=== PATIENT | female | born 1990 | race Caucasian/White ===

== ENCOUNTER 2016-11-10 19:24 | Emergency (ER) | payer SELFPAY ==
[2016-11-10 19:33] VITALS: TEMP 98.3; BMI 44.8
[2016-11-10] MEDS ORDERED: ONDANSETRON HCL 4 MG/2 ML VIAL IV ONE (19:51)
[2016-11-10] MEDS ORDERED: NS 2,000 ML IV ONE (19:51)
[2016-11-10] MEDS ORDERED: SODIUM CHLORIDE 0.9% 10 ML FLUSH FLUSH PRN (19:51)
--- NOTE | 2016-11-10 19:59 | EDPRACDOC ---
- General Information Chief Complaint: Generalized Weakness Stated Complaint: DEHYDRATION? Time Seen by Provider: 11/10/16 19:51 Information Source: Patient Mode Of Arrival: Car Home Medications: Home Medications Promethazine [Phenergan] 25 mg PO Q4-6H PRN #15 tab 11/10/16 Allergies/Adverse Reactions: Allergies Allergy/AdvReac Type Severity Reaction Status Date / Time No Known Allergies Allergy Verified 11/10/16 19:33 - History of Present Illness Onset: last Wednesday HPI: Pt c/o n/v x 4-5 days with upper abd pain. Denies fever, cough, congestion, cp, sob, changes in bowel or bladder, rash. Pt states she feels very dehydrated and every time she drinks or eats it causes pain and vomiting. Denies vomiting in 24 hours more nausea. Pain Location: Reports: Epigastric, LUQ Pain Context: Reports: Spontaneous Pain Severity: Moderate Pain Quality: Reports: Aching, Sharp Pain Radiation: Reports: No Radiation Last Menstrual Period: october 20 : No Adult Abdominal History: Denies: Abdominal Surgery, Urolithiasis, Bowel Obstruction, Similar Pain (dx) Female Abdominal History: Denies: Abdominal Surgery, UTI, Ectopic, PID, Urolithiasis, Similar Pain (dx) Modifying Factors: improves with: Food Female Associated Signs & Symptoms: Reports: Nausea, Vomiting Oral Intake: Decreased Urinary Output: Decreased ED Past Medical History - History Reviewed Yes Nurses notes reviewed and agree except as marked - Patient Medical History Psychological History: Denies: Depression Systemic History: Denies: Cancer Surgical History: Reports: Appendectomy, Cholecystectomy, Tonsillectomy/ Adnoidectomy - Social Medical History Smoking Status: Never smoker ETOH: None Substance Abuse: None EDM Review of Systems - Review of Systems Constitutional: No Symptoms Reported. negative: Fever, Chills, Weakness, Fatigue, Loss of Appetite Ears: No Symptoms Reported. negative: Pain, Hearing Loss, Drainage, Ear Pulling Throat: No Symptoms Reported. negative: Pain, Swelling Nose: No Symptoms Reported. negative: Congestion, Bleeding, Discharge, Injection, Swelling, Deformity, Ecchymosis, Tender, Abrasion, Laceration Mouth: No Symptoms Reported. negative: Pain, Drooling Respiratory: No Symptoms Reported. negative: Cough, Brassy Cough, Barky Cough, Shortness of Breath, Wheezing, Hemoptysis Cardiovascular: No Symptoms Reported. negative: Chest Pain, Palpitations, Syncope, Edema, Orthopnea, PND, Skin Mottling, Cyanosis Gastrointestinal: Nausea, Pain, Vomiting Genitourinary: No Symptoms Reported. negative: Dysuria, Hematuria, Frequency, Discharge, Bleeding, Testicular Pain, Neurological: No Symptoms Reported. negative: Headache, Dizziness, Seizure, Numbness, Weakness, Speech Difficulty, Gait Difficulty Musculoskeletal: No Symptoms Reported. negative: Neck, Chestwall, Ribs, Back, Shoulder, Arm, Elbow, Forearm, Wrist, Hand, Pelvis, Hip, Femur, Knee, Leg, Ankle , Foot Integumentary: No Symptoms Reported. negative: Itching, Rash, Bruising, Wound Allergic/Immunologic: No Symptoms Reported. negative: Hives, Itching Hematologic: No Symptoms Reported. negative: Lymphadenopathy, Easy Bruising, Easy Bleeding Psychiatric: No Symptoms Reported. negative: Anxiety, Depression, Hallucinations, Insomnia, Suicidal - Physical Exam Constitutional: Alert Oriented to: Time, Person, Place Last recorded Vital Signs: Last Vital Signs Temp 98.3 F 11/10/16 19:27 Pulse 130 H 11/10/16 19:34 Resp 20 11/10/16 19:27 BP 116/69 11/10/16 19:34 Pulse Ox 100 11/10/16 19:27 Oxygen Pulse Oxygen Saturation 100 O2 Device Room Air Oxygen Flow Rate Fraction of Inspired Oxygen ( FIO2) - HEENT Head: Normal ( normocephalic) Eye Exam: Normal (PERRL, EOMI, Sclera white) Oropharynx: Normal (Pharynx:Moist without exudate,Gums-no swelling) Neck: Normal (FROM, trachea at midline) - Respiratory/Cardiovascular Respiratory: Normal - CTA (BBS clear to auscultation without adventitious sounds ) Cardiovascular: Normal (RRR without murmur, gallop or rub) - GI Auscultation: Increased Palpation: Normal (Soft,No rebound or guarding, non distended) Tenderness: Mild, LUQ, Epigastric - Musculoskeletal Back: Normal (Non-Tender) Extremities: Normal (Normal tone, Pulses 2+ No cyanosis or edema, FROM) - Integumentary Skin: Normal, Warm, Dry Lymphatics: Normal (no adenopathy) - Neurologic Memory Impaired: Normal Motor Function: Normal (Normal tone, Pulses 2+ No cyanosis or edema, FROM) Mood Description: Normal Perception: Normal - Differential Diagnosis Gastroenteritis, Pancreatitis, PUD, Other (dehydration) - Results 11/10/16 20:00 11/10/16 20:00 WBC 7.1 xk/uL (3.8-10.8) 11/10/16 20:00 RBC 4.73 xM/uL (4.20-5.40) 11/10/16 20:00 Hgb 14.2 g/dL (12.0-16.0) 11/10/16 20: Hct 43.6 % (36-47) 11/10/16 20:00 MCV 92 fL (81-99) 11/10/16 20:00 MCH 30.1 pg (27-32) 11/10/16: MCHC 32.6 g/dl (33-36) L 11/10/16 20: RDW 12.9 % (11.5-14.5) 11/10/16 20:00 Plt Count 241 xk/uL (130-400) 11/10/16 20:00 MPV 9.5 fL (7.4-10.4) 11/10/16 20:00 Neut % (Auto) 58.5 % (45-76) 11/10/16 20:00 Lymph % (Auto) 29.0 % (17-44) 11/10/16:00 [place] % (Auto) 10.1 % (3-10) H 11/10/16 20:00 Eos % (Auto) 1.5 % (0-5) 11/10/16 20:00 Baso % (Auto) 0.9 % (0-2) 11/10/16 20:00 Absolute Neuts (auto) 4.12 xk/uL (1.7-8.2) 11/10/16 20:00 Absolute Lymphs (auto) 2.06 xk/uL (0.65-4.75) 11/10/16 20:00 Sodium 140 mEq/L (137-146) 11/10/16 20:00 Potassium 4.0 mEq/L (3.5-5.1) 11/10/16 20:00 Chloride 105 mEq/L (98-107) 11/10/16 20:00 Carbon Dioxide 23 mMOL/L (22-33) 11/10/16 20:00 Anion Gap 16 mEq/L (8-16) 11/10/16 20:00 BUN 13 MG/DL (7-17) 11/10/16 20:00 Creatinine 0.80 MG/DL (0.52-1.04) 11/10/16 20:00 Estimated GFR (MDRD) > 60 mL/min (>=60) 11/10/16 20:00 Glucose 105 MG/DL (70-99) H 11/10/16 20:00 Calculated Osmolality 269 MOs/Kg (270-290) L 11/10/16 20:00 Calcium 9.3 MG/DL (8.4-10.2) 11/10/16 20:00 Total Bilirubin 0.4 MG/DL (0.2-1.3) 11/10/16 20:00 AST 76 IU/L (14-36) H 11/10/16 20:00 ALT 95 IU/L (9-52) H 11/10/16 20:00 Alkaline Phosphatase 55 IU/L (38-126) 11/10/16 20:00 Total Protein 7.7 G/DL (6.3-8.2) 11/10/16 20:00 Albumin 4.3 G/DL (3.5-5.0) 11/10/16 20:00 Lipase 83 U/L (23-300) 11/10/16 20:00 Urine Color Yellow 11/10/16 20:51 Urine Clarity Sl cldy 11/10/16 20:51 Urine pH 8.0 (5.0-8.0) 11/10/16 20:51 Ur Specific [place] 1.005 (1.003-1.035) 11/10/16 20:51 Urine Protein Neg (NEG/TRACE) 11/10/16 20:51 Urine Glucose (UA) Neg (NEGATIVE) 11/10/16 20:51 Urine Ketones Neg (NEGATIVE) 11/10/16 20:51 Urine Occult Blood Neg (NEG/TRACE) 11/10/16 20:51 Urine Nitrite Neg (NEGATIVE) 11/10/16 20:51 Urine Bilirubin Neg (NEGATIVE) 11/10/16 20:51 Urine Urobilinogen <2.0 MG/DL (0-1) 11/10/16 20:51 Ur Leukocyte Esterase Neg (NEGATIVE) 11/10/16 20:51 Urine WBC 0-2 (0-5) 11/10/16 20:51 Ur Epithelial Cells 1+ 11/10/16 20:51 Urine Mucus Sm amt (NEG/OCC) 11/10/16 20:51 Urine Test Neg (NEGATIVE) 11/10/16 20:51 Lab Results 11/10/16 11/10/16 11/10/16 20:51 20:51 20:00 WBC RBC Hgb Hct MCV MCH MCHC RDW Plt Count MPV Neut % (Auto) Lymph % (Auto) [place] % (Auto) Eos % (Auto) Baso % (Auto) Absolute Neuts (auto) Absolute Lymphs (auto) Sodium Potassium Chloride Carbon Dioxide Anion Gap BUN Creatinine Estimated GFR (MDRD) Glucose Calculated Osmolality Calcium Total Bilirubin AST ALT Alkaline Phosphatase Total Protein Albumin Lipase Cancelled Urine Color Yellow Urine Clarity Sl cldy Urine pH 8.0 Ur Specific [place] 1.005 Urine Protein Neg Urine Glucose (UA) Neg Urine Ketones Neg Urine Occult Blood Neg Urine Nitrite Neg Urine Bilirubin Neg Urine Urobilinogen <2.0 Ur Leukocyte Esterase Neg Urine WBC 0-2 Ur Epithelial Cells 1+ Urine Mucus Sm amt Urine Test Neg 11/10/16 11/10/16 20:00 20:00 WBC 7.1 RBC 4.73 Hgb 14.2 Hct 43.6 MCV 92 MCH 30.1 MCHC 32.6 L RDW 12.9 Plt Count 241 MPV 9.5 Neut % (Auto) 58.5 Lymph % (Auto) 29.0 [place] % (Auto) 10.1 H Eos % (Auto) 1.5 Baso % (Auto) 0.9 Absolute Neuts (auto) 4.12 Absolute Lymphs (auto) 2.06 Sodium 140 Potassium 4.0 Chloride 105 Carbon Dioxide 23 Anion Gap 16 BUN 13 Creatinine 0.80 Estimated GFR (MDRD) > 60 Glucose 105 H Calculated Osmolality 269 L Calcium 9.3 Total Bilirubin 0.4 AST 76 H ALT 95 H Alkaline Phosphatase 55 Total Protein 7.7 Albumin 4.3 Lipase 83 Urine Color Urine Clarity Urine pH Ur Specific [place] Urine Protein Urine Glucose (UA) Urine Ketones Urine Occult Blood Urine Nitrite Urine Bilirubin Urine Urobilinogen Ur Leukocyte Esterase Urine WBC Ur Epithelial Cells Urine Mucus Urine Test Decision Time to Discharge: 21:43 - Departure Disposition: Home Condition: Good Final Diagnosis: Epigastric abdominal pain N&V (nausea and vomiting) Qualifiers: Vomiting type: unspecified Vomiting Intractability: non-intractable Qualified Code(s): R11.2 - Nausea with vomiting, unspecified Instructions: Acute Nausea and Vomiting (ED), Non-pharmacological Pain Management Therapies for Adults (GEN), Abdominal Pain (ED) Education/Counseling Given To: Patient Education/Counseling Given Regarding: Diagnosis, Treatment, Follow Up Referrals: None,No Provider [Primary Care Provider] - One Week Alexis Johnson MD [Staff Physician] - One Week Prescriptions: Promethazine [Phenergan] 25 mg PO Q4-6H PRN #15 tab PRN Reason: Nausea/Vomiting Additional Instructions: Drink sips of Gatorade every 2-3 minutes while awake. Do NOT drink large volumes of fluid at once. If you vomit, take the nausea-vomiting medicine prescribed, wait ~ 30 minutes, and restart the sipping process. Return to the Emergency Department if you think you are getting dehydrated, have persistent abdominal pain that is unrelenting, have worse or different symptoms, or any concerns.
[2016-11-10 20:18] LABS: AUTOMATED BASOPHIL 0.9 % (0-2); AUTOMATED EOSINOPHIL 1.5 % (0-5); AUTOMATED MONOCYTE 10.1 % (3-10); AUTOMATED NEUTROPHIL 58.5 % (45-76); MPV 9.5 fL (7.4-10.4)
[2016-11-10 20:26] LABS: BLOOD UREA NITROGEN 13 MG/DL (7-17); CALCIUM 9.3 MG/DL (8.4-10.2); CALCULATED OSMOLALITY 269 MOs/Kg (270-290); CHLORIDE 105 mEq/L (98-107); GLUCOSE 105 MG/DL (70-99); SODIUM LEVEL 140 mEq/L (137-146); TOTAL PROTEIN 7.7 G/DL (6.3-8.2)
[2016-11-10 21:13] LABS: LEUKOCYTES/URINE NEG (NEGATIVE); NITRITE/URINE NEG (NEGATIVE); URINE OCCULT BLOOD NEG (NEG/TRACE); WBC/URINE 0-2 (0-5)
[2016-11-10 21:54] VITALS: BP 121/70; PULSE 85
== END 2016-11-10 21:44 | disposition home or self-care (01) ==
LOC: ED 19:24
DX: R11.2 Nausea with vomiting, unspecified (principal); R10.13 Epigastric pain
CPT/HCPCS: 36415; 80053; 81001; 81025; 83690; 85025; 96374; 99283; J2405